=== PATIENT | female | born 1990 | race Caucasian/White ===

== ENCOUNTER 2021-08-25 10:40 | Emergency (ER) | payer BC ==
[~2021-08-25] VITALS: Ht 170.2 cm; Wt 131.5 kg
== END 2021-08-25 13:45 | disposition home or self-care (01) ==
LOC: ER1 10:40
DX: U07.1 COVID-19 (principal); Z23 Encounter for immunization
CPT/HCPCS: 99283; M0245

== ENCOUNTER 2022-03-02 11:17 | Emergency (ER) | payer BC ==
[2022-03-02 13:11] LABS: HEMOGLOBIN 13.2 gm/dl (12.3-15.3); RED BLOOD COUNT 4.88 M/UL (4.00-5.10); WHITE BLOOD COUNT 8.5 K/UL (4.5-11.0)
[2022-03-02] MEDS ORDERED: OXYCODONE-ACET120 ML PO (18:36)
[2022-03-02] MEDS ORDERED: ZOFRAN ODT 4 MG4 MG SL (19:17)
== END 2022-03-02 19:00 | disposition home or self-care (01) ==
LOC: ER1 11:17
PROVIDERS: Physician Assistant
DX: N13.2 Hydronephrosis with renal and ureteral calculous obstruction (principal); Z87.442 Personal history of urinary calculi
CPT/HCPCS: 80053; 81001; 84703; 85025; 99284; J1885; J2270; J2405